=== PATIENT | female | born 1950 | race Caucasian/White ===

== ENCOUNTER 2020-06-13 05:35 | Day surgery (SDC) | payer MEDICARE, BC ==
[2020-06-10 13:25] LABS: CALC OSMOLALITY 279 mosm/kg (275-300); CALCIUM 9.9 mg/dL (8.5-10.1); CARBON DIOXIDE 31.4 mmol/L (21.0-32.0); CHLORIDE - SERUM 103 mmol/L (98-107); CREATININE - SERUM 0.7 mg/dL (0.6-1.3); GLUCOSE 108 mg/dL (74-106); POTASSIUM - SERUM 3.8 mmol/L (3.5-5.1); SODIUM 139 mmol/L (136-145); UREA NITROGEN 16 mg/dL (7-18); eGFR NON AFRICAN AMERICAN 88 mL/min (90-120)
[2020-06-10 13:36] LABS: BASOPHILS 0.2 % (0-2); EOSINOPHILS 1.1 % (0-7); HEMATOCRIT 40.9 % (36.0-48.0); HEMOGLOBIN 13.6 g/dL (12-16); IMMATURE GRANULOCYTES 0.3 % (0-5); LYMPHOCYTES 29.1 % (15-50); MCH 31.9 pg (26.0-34.0); MCHC 33.3 g/dL (31.0-37.0); MEAN PLATELET VOLUME 10.8 fL (7.4-10.4); MONOCYTES 8.5 % (2-11); NEUTROPHILS 60.8 % (40-80); PLATELET COUNT 197 10x3/uL (130-400); RBC 4.26 10x6/uL (4.00-5.40); RDW 12.2 % (11.5-14.5); WBC 6.2 10x3/uL (4.8-10.8)
[2020-06-11 10:43] LABS: ALBUMIN 4.4 g/dL (3.4-5.0); ALKALINE PHOSPHATASE 56 U/L (30-120); ALT (SGPT) 27 U/L (10-68); BILIRUBIN - TOTAL 0.39 mg/dL (0.2-1.3); PROTEIN - SERUM 7.8 g/dL (6.4-8.2)
[~2020-06-13] VITALS: Ht 167.6 cm; Wt 68.2 kg
[~2020-06-13 05:35] MED LIST: LIPITOR10 MG PO; PREVACID30 MG PO; TOPROL XL25 MG PO; TRAZODONE HCL150 MG PO
[2020-06-13 06:15] VITALS: BP 167/62; BMI 26.7
[2020-06-13 12:06] VITALS: BP 139/99
--- NOTE | 2020-06-13 12:10 | NUR ---
to room 1278 via bed from rr.
--- NOTE | 2020-06-13 12:22 | NUR ---
BEDSIDE REPORT COMPLETED, PT IS NOTICABLY DROWSY, SHE IS ABLE TO ANSWER QUESTIONS. RATES PAIN AT 10/10 AND HOLDING ICE PACK TO ABDOMEN WITH SHALLOW BREATHING. IV INFUSING PER ORDERS WITH MOYA CATH TO BEDSIDE DRAIN THERE IS 250ML BLUISH URINE. SCD BILAT THAT ARE CONNECTED TO PUMP. EXPLAINED TO PT AND SPOUSE WHO IS PRESENT AT BEDSIDE THAT PAIN MED HAD BEEN GIVEN IN RECOVERY ROOM JUST THEY LEFT TO COME TO ROOM, WOULD REEVALUATE.
--- NOTE | 2020-06-13 12:39 | NUR ---
CALLED TO ROOM BY PT SPOUSE, MERNA RN AND Liberty TILLEY RN TO BEDSIDE. PT COMPLAINS OF NAUSEA, PT TURNED FROM HER BACK TO RIGHT SIDE WITH PILLOW TO BACK FOR SUPPORT. O2 94% ON ROOM AIR, SHE IS ENCOURAGED TO TAKE SLOW DEEP BREATHS.
--- NOTE | 2020-06-13 12:41 | NUR ---
STATES THAT NAUSEA IS BETTER, SMALL CUP OF LEMON UGASHIK SODA PROVIDED WITH INSTRUCTIONS TO SIP ON. CALL LIGHT IN REACH WITH SIDE RAILS UP X 2.
--- NOTE | 2020-06-13 13:24 | NUR ---
states that pain is better. placed on o2 at 2l/nc for o2 sat of 91.
--- NOTE | 2020-06-13 13:30 | NUR ---
DR MILES AT BEDSIDE.
--- NOTE | 2020-06-13 15:30 | NUR ---
PT IS AWAKE AND WATCHING TV WITH SPOUSE AT BEDSIDE. RATES PAIN AT 7/10, DILAUDID 1MG GIVEN SIVP SCANNED TO EMAR. NEW ICE PACK TO ABDOMEN AND SMALL CUP OF ICE WATER ALSO PROVIDED AT THIS TIME. MOYA CANISTER WITH 300ML CLEAR BLUE URINE NOTED. ASSISTANCE GIVEN WITH MOVING UP IN BED. POSITIONS SELF TO RIGHT TILT, SIDE RAILS UP X 2 WITH CALL LIGHT IN REACH.
--- NOTE | 2020-06-13 16:00 | NUR ---
RATES PAIN AT 3/10, LIGHTS DIMMED REQUESTED, REMAINS TILTED TO HER RIGHT SIDE. CALL LIGHT IN REACH WITH SIDE RAILS UP X 2.
--- NOTE | 2020-06-13 18:00 | NUR ---
ZOFRAN GIVEN IV FOR COMPLAINT NAUSEA. PT JUST FINISHED CLEAR LIQUID DIET AND ADVICED HER TO TURN OR TILT TO HER SIDE OFF HER BACK TO HELP DECREASE NAUSEA, SHE TILTS TO HER LEFT SIDE. IVAC CLEARED AND MOYA CATH EMPTIED CHARTED TO I/O FLOWSHEET. PT DENIES NEEDS AT THIS TIME. CALL LIGHT IN REACH WITH SIDE RAILS UP X 2.
--- NOTE | 2020-06-13 19:13 | NUR ---
RN TO PT BEDSIDE, PT STATES PAIN IS 7/10 TO ABDOMEN, INCISIONS CLEAN, DRY, AND INTACT, 250ML OF LIGHT GREEN URINE IN UROMETER DRAINING TO BEDSIDE. WILL REVIEW MAR FOR PAIN MEDS, BED IN LOWEST POSITION, SIDE RAILS UPX2, CALL LIGHT IN REACH.
[2020-06-13 20:02] VITALS: BP 151/67
[2020-06-13 20:19] VITALS: Ht 167.6 cm; Wt 68.2 kg
--- NOTE | 2020-06-13 21:48 | NUR ---
RN TO PT BEDSIDE, MOYA CATHETER REMOVED AT THIS TIME. PT ASSISTED TO AMBULATORY POSITION, PT AMBULATED TO BATHROOM WITH RN ASSISTANCE. PT UNABLE TO VOID AT THIS TIME, PT EDUCATED THAT SHE MUST VOID WITHIN 6 HOURS TO AVOID BEING CATHED FOR URINE REMOVAL, PT VERBALIZES UNDERSTANDING. PT PROVIDED BRIEFS AND PADS AND NEW GOWN, COMPLETE LINEN CHANGE ON BED. PT ASSISTED BACK TO BED, SCD'S APPLIED. PT DENIES ANY NEEDS AT THIS TIME. BED IN LOWEST POSITION, SIDE RAILS UPX2, CALL LIGHT IN REACH.
--- NOTE | 2020-06-13 23:18 | NUR ---
RN TO PT BEDSIDE, PT SLEEPING AT THIS TIME.
--- NOTE | 2020-06-14 02:12 | NUR ---
RN TO PT BEDSIDE, 300ML LIGHT GREEN URINE TO URINE HAT AT THIS TIME.
--- NOTE | 2020-06-14 02:15 | NUR ---
RN TO PT BEDSIDE, PT ADMINISTERED TORADOL 15MG IV AT THIS TIME FOR PAIN OF 3/10 TO ABDOMEN. PT DENIES ANY OTHER NEEDS AT THIS TIME.
--- NOTE | 2020-06-14 03:59 | NUR ---
RN TO PT BEDSIDE, PT UP TO BATHROOM.PT VOIDED 200ML INTO URINE HAT,URINE LIGHT BLUE IN COLOR. RN ASSESS VAG PACKING, PACKING STILL INTACT AND IN PLACE. PT HAS PAD AND BRIEF ON. PT AMBULATED TO BED WITH STANDBY ASSISTANCE, GAIT STEADY.
--- NOTE | 2020-06-14 05:22 | NUR ---
RN TO BEDSIDE, PT AMBULATED TO BATHROOM WITH STANDBY ASSISTANCE. PT VOIDED 300ML MEDIUM GREEN URINE TO URINE HAT. LAB IN THE ROOM TO DRAW BLOOD AT THIS TIME, PT DENIES ANY NEEDS. RN TO RETURN TO ROOM TO REASSESS VAGINAL PACKING.
[2020-06-14 05:31] VITALS: BP 118/76
--- NOTE | 2020-06-14 05:37 | NUR ---
RN TO PT BEDSIDE, RN ASSESSED VAGINAL PACKING, PACKING IN PLACE. NO BLEEDING, NO DRAINAGEs SEEN.
--- NOTE | 2020-06-14 07:00 | NUR ---
REPORT RECIEVED FROM 7P SHIFT.
[2020-06-14 07:05] LABS: HEMATOCRIT 36.5 % (36.0-48.0); HEMOGLOBIN 11.8 g/dL (12-16); MCH 31.2 pg (26.0-34.0); MCHC 32.3 g/dL (31.0-37.0); MCV 96.6 fL (80.0-100.0); MEAN PLATELET VOLUME 10.7 fL (7.4-10.4); RBC 3.78 10x6/uL (4.00-5.40); RDW 12.3 % (11.5-14.5); WBC 9.9 10x3/uL (4.8-10.8)
[2020-06-14 08:30] VITALS: BP 119/58
--- NOTE | 2020-06-14 08:30 | NUR ---
AM ASSESSMENT COMPLETED. LAP INCISIONS NOTED TO BE INTACT, C/D, WITH MINIMAL AMOUNT OF BRUISING NOTED TO LEFT OUTER EDGE OF LOWER LEFT LAP INCISION, AND TO RIGHT OUTER EDGE OF LOWER RIGHT LAP INCISION. PT REPORTS INCREASED TENDERNESS TO LOWER LEFT LAP INCISION. ABDOMEN PALPATES SOFT. SEE FLOWSHEET FOR COMPLETE ASSESSMENT. SRUP X2, CALL LIGHT AND PHONE WITHIN REACH.
--- NOTE | 2020-06-14 09:45 | NUR ---
PT HAS TOLERATED HER REGULAR BREAKFAST, DENIES N/V, DENIES SOB, OR DIFFICULTY BREATHING. SEE EM[facility] FOR ALL MEDS ADM BY THIS RN. PT STATES SHE WANTS TO WAIT TO TAKE THE PERCOCET, SHE IS AFRAID IT WILL MAKE HER NAUSEATED. WILL WAIT TO GIVE THE ZOFRAN WELL ALONG WITH THE PERCOCET PRN PER PT'S REQUEST. PT DENIES ALL OTHER NEEDS AT THIS TIME. SR UP X2, CALL LIGHT AND PHONE WITHIN REACH.
--- NOTE | 2020-06-14 11:00 | NUR ---
TO PT'S ROOM, PLAN OF CARE EXPLAINED TO PT. VAGINAL PACKING SLOWLY REMOVED, PT REESE WELL. PACKING HAS PINKISH/RED BLOOD/FLUIDS NOTED. NO ACTIVE VAGINAL BLEEDING NOW. PERINEUM INTACT, PERICARE DONE WITH WARM WET WASHCLOTHS. NEW PERIPAD/PANTIES PLACED. PT SERVED FRESH GLASS OF ICE WATER. PT DENIES ALL OTHER NEEDS AT THIS TIME. SRUP X2, CALL LIGHT AND PHONE WITHIN [facility].
--- NOTE | 2020-06-14 12:40 | NUR ---
PT AMBULATORY IN HALLWAY WITH HER FAMILY MEMBER. PT DENIES ALL NEEDS AT THIS TIME.
--- NOTE | 2020-06-14 12:49 | OP ---
PATIENT NAME: ESTEFANÍA PAULA MEDICAL RECORD: [id number] :50 LOCATION:[facility].1278 ADMISSION DATE: SURGEON: WILLIAM MILES MD DATE OF OPERATION: 06/13/2020 PREOPERATIVE DIAGNOSES: 1. Second-degree uterine prolapse. 2. Second-degree cystocele. 3. First-degree rectocele. POSTOPERATIVE DIAGNOSES: 1. Second-degree uterine prolapse. 2. Second-degree cystocele. 3. First-degree rectocele. 4. Pelvic adhesions. PROCEDURE PERFORMED: 1. Diagnostic laparoscopy. 2. Lysis of adhesions. 3. Laparoscopically assisted vaginal hysterectomy with bilateral salpingo-oophorectomy. 4. Anterior colporrhaphy. 5. Posterior colporrhaphy. 6. Cystoscopy. SURGEON: William Miles MD SUBGRADE ROLLER OPERATOR: TANMAY Thrasher and ORESTES Garcia. ANESTHESIOLOGIST: Dr. Oh ANESTHETIC: General. FINDINGS: Uterus prolapses to within a centimeter and a half of the hymenal ring. There was also associated midline cystocele. The first-degree rectocele was also present. The bladder mucosa is unremarkable for postmenopausal state. Bladder is unremarkable with good efflux of urine from both ureters. SPECIMEN REMOVED: Uterus with tubes, cervix, and ovaries. SPECIMEN DISPOSITION: Pathology. ESTIMATED BLOOD LOSS: 150. FLUIDS: 2.2 liters of lactated Ringer's. URINE OUTPUT: 400 cc of clear urine. COMPLICATIONS: None. DRAINS: Gibson to gravity with vaginal packing. INDICATIONS: The patient is a 70-year-old female with persistent bulge at the introitus. The patient notes this to be worsened with prolonged standing or Valsalva. The patient has been offered alternatives to pelvic surgery and OPERATIVE REPORT [id number] ESTEFANÍA PAULA wishes to proceed. DESCRIPTION OF PROCEDURE: After informed consent was assured, the patient was taken to the operating room where anesthetic was obtained. The patient was placed in [facility] stirrups and prepped and draped. Exam under anesthesia was performed with the above findings. The patient now has uterine manipulator placed. Gibson catheter was started. The attention was directed to the abdomen where an incision was made to accommodate a 5-mm trocar. This trocar was inserted without difficulty and pneumoperitoneum developed. Accessory ports were now placed in the midline and right lower quadrant. Through the midline port, a grasper was used to hold the adhesion band on tension. Using a Thunderbeat coagulation cutter from the right lower quadrant, the adhesions are taken down adjacent to the abdominal wall. This dissection was carried out from the midline to the left lower quadrant where the port site for the left lower quadrant is freed of adhesions. Incision was now made in the left lower quadrant to accommodate another 5-mm trocar, which was inserted under direct visualization. Through this, a coagulation cutter was inserted with the uterus manipulated and the left tube and ovary elevated. The infundibulopelvic ligament was compressed, coagulated, and . The dissection was carried out underneath the ovary and tube across the round ligament and the anterior leaf of the broad ligament was opened. The bladder flap was now developed across the midline. Posteriorly, the broad ligament was dissected and the vessels of the left side exposed. The vessels were now compressed, coagulated, and . Attention was now directed to the right side. Likewise from the left, ovary is elevated. Using a Thunderbeat coagulation cutting the dissection was carried out over the infundibulopelvic ligament underneath the right ovary and tube and across the round ligament. The anterior leaf of the broad ligament was opened and the bladder flap now fully developed. Posterior tissues were dissected free of the vascular bundle of the right side, which was now compressed, coagulated, and . Attention is now directed to the vagina. With the pneumoperitoneum released and the legs positioned for the vaginal portion of this case, a weighted speculum was introduced to the vagina and the cervix grasped with Bello tenaculums. The cervix was elevated. The posterior cul-de-sac was entered with Martinez scissors. This space was widened and a long weighted speculum was placed in the skin opening. The uterosacral ligaments were isolated both left and right side with Guicho-Milton clamps. Both of these pedicles were developed sharply and stick tied with 0 Vicryl stitch. These were held for later use in the procedure. Dissection was carried out across the top with Bovie cautery. Once the bladder has been mobilized using Metzenbaum scissors, the anterior pouch was entered and a Newcastle retractor was inserted. The remaining pedicle on both right and left side was clamped with Guicho-Milton clamps. Both these pedicles are cut with scissors and the uterus removed along with the cervix, both tubes and ovaries en bloc. A free tie and then [id number] stitch was applied on both of these remaining pedicles to obtain hemostasis. The pelvis was inspected with the mobility of the apex. The uterosacral vault suspension is now performed. Using Allis clamp, the uterosacral ligaments were grasped at 2.5-3 cm above the cuff. A bridge is built between the right and left uterosacral ligaments with Ethibond stitch. A Vicryl stitch was now passed from the posterior vaginal vault through the uterosacral complex on the left, carried over to the right and then back out the cul-de-sac and the posterior vault of the vaginal opening. This was tagged to be tied later in the procedure. The cuff was now closed in anterior to posterior fashion with a running stitch of Vicryl. Once the uterosacral ligaments, which had been previously tagged at the beginning of the procedure has been reached, they are plicated in the midline. The cuff has continued to OPERATIVE REPORT [id number] ESTEFANÍA PAULA be closed. Once the cuff has been closed, the uterosacral stitch that was passed through the posterior vault is now tied securing the apex of the vagina with the ligament support. Anterior vault is now inspected and cystocele in the midline was identified. The space is injected with 0.5% lidocaine solution with epinephrine. Incision was made with a 15 blade and the vaginal mucosa dissected free from the deeper tissues. The endopelvic fascia was identified and the herniation of the bladder reduced. Using [address]-2 needle, imbricating stitches are placed posteriorly to anteriorly. These were tied in a sequential fashion from the posterior to the anterior. Another Vicryl stitch is placed underneath the bladder neck. Once this has all been performed, the vaginal mucosa was trimmed and closed attaching the mucosa to the deeper tissues to eliminate space. Posterior vault was inspected. A transverse incision was made across the posterior aspect of the vagina. Using Metzenbaum scissors, the mucosa was undermined and opened. The mucosa is dissected free from the deeper tissues on both right and left side with Metzenbaum scissors. Endopelvic fascia was identified and a J-shaped defect is noted. The detachment of the fascia appears to be from the right side. This fascia was now reapproximated with imbricating [address]-2. This is placed to posterior to anteriorly and tied in sequential fashion in the same order. Once the posterior colporrhaphy has been performed, the mucosa is trimmed and the space now closed. A v-shaped portion of tissue was removed from the perineal body. The mucosal closed begins at the apex and was carried the introitus where a crown stitch was performed. A separate 0 Vicryl stitch was used to reapproximate the transverse perineal muscle defect that is identified. The stitch that was used for the vaginal mucosa passed into the perineal body and brought out at the apex above the anus and then a subcuticular technique is used to reapproximate the skin of the perineal body. This stitch was secured within the vagina. Vaginal packing is now placed. Gibson catheter was removed and cystoscopy was now performed after the patient has been given methylene blue. Efflux of urine was noted from both right and left ureters. Once the cystoscopy has been performed, Gibson catheter was restarted and pneumoperitoneum reestablished. Inspection of the lower pelvis revealed adequate hemostasis and good approximation of the uterosacral ligaments and its application to the vagina. After the pelvis was irrigated, irrigant was removed and pneumoperitoneum was released. All trocars were removed and the incisions were closed with a subcuticular stitch. Sponge, lap, needle counts were correct times 2. TRANSINT:[id number] Voice Confirmation ID: [id number] DOCUMENT ID: [id number] WILLIAM MILES MD at 1249 CC: [id number] DICTATION DATE: 06/13/20 1114 DIRECTOR OF GLOBAL MARKETING: 06/13/20 2231 [facility] [address] [place] [address]
--- NOTE | 2020-06-14 13:00 | NUR ---
DR. MILES IN ROOM SPEAKING WITH PT.
[2020-06-14] MEDS ORDERED: MOBIC7.5 MG PO (14:58)
[2020-06-14] MEDS ORDERED: PERCOCET 5-3251 TAB PO (14:59)
--- NOTE | 2020-06-14 15:00 | NUR ---
DISCHARGE INSTRUCTIONS EXPLAINED TO PT. PT DENIES ALL QUESTIONS.
[2020-06-14] MEDS ORDERED: NEURONTIN 300300 MG PO (15:01)
--- NOTE | 2020-06-14 15:19 | NUR ---
PT REQUESTING TORADOL, PERCOCET, AND ZOFRAN BEFORE SHE GOES HOME. SEE EMAR FOR ALL MEDS ADM BY THIS RN. IV FLUSHED WITH 10 CC NS BEFORE AND AFTER MED ADM, AND ALL IV MEDS DILUTED WITH 5 CC NS DURING ADM. SL THEN DC'D WITH CATH INTACT.
--- NOTE | 2020-06-14 15:30 | NUR ---
PT DISCHARGED OFF UNIT IN STABLE CONDITION BY WHEELCHAIR, WITH HER FAMILY DRIVING HER HOME.
== END 2020-06-14 15:30 | disposition home or self-care (01) ==
LOC: D.OPS 05:35 → D.PAN 07:10 → D.OPS 07:30 → D.PAN 08:30 → D.LD 11:35 → D.OPS 06-14 15:30
PROVIDERS: Anesthesiology; ATTEND Obstetrics & Gynecology
DX: N81.4 Uterovaginal prolapse, unspecified (principal); N81.6 Rectocele; N73.6 Female pelvic peritoneal adhesions (postinfective)